=== PATIENT | male | born 1975 | race Caucasian/White ===

== ENCOUNTER 2016-11-09 14:09 | Emergency (ER) | payer MEDICAID ==
[2016-11-09] MEDS ORDERED: Doxycycline 100 MG in Sodium Chloride 0.9% 100 ML IV ONE (14:54)
[2016-11-09] MEDS ORDERED: Sodium Chloride 0.9% 1,000 ML IV SCH (15:00)
--- NOTE | 2016-11-09 16:16 | EDM.PDOC ---
ED HPI GENERAL MEDICAL PROBLEM - General Chief Complaint: Neuro Symptoms/Deficits Stated Complaint: LT SIDE NUMBNESS Time Seen by Provider: 11/09/16 14:30 Source of Information: Reports: Patient History Limitations: Reports: No Limitations - History of Present Illness INITIAL COMMENTS - FREE TEXT/NARRATIVE: pt arrived with a patchy rash on his rt arm and on his back. The rash on the rt arm looks very much target like. He now has a facial paralysis that started today. Onset: Today, Other ( the facial paralysis/ ) Duration: Hour(s): Location: Reports: Face, Generalized Associated Symptoms: Reports: No Other Symptoms - Related Data Allergies Allergy/AdvReac Type Severity Reaction Status Date / Time No Known Allergies Allergy Verified 02/27/16 07:38 Home Meds: Home Meds NK [No Known Home Meds] 11/09/16 [History] Past Medical History Musculoskeletal History: Reports: Neck Pain, Chronic Social & Family History - Tobacco Use Smoking Status *Q: Never Smoker ED ROS GENERAL - Review of Systems Review Of Systems: See Below Constitutional: Reports: No Symptoms HEENT: Reports: Other ( facial paralysis) Respiratory: Reports: No Symptoms Cardiovascular: Reports: No Symptoms Endocrine: Reports: No Symptoms GI/Abdominal: Reports: No Symptoms : Reports: No Symptoms Musculoskeletal: Reports: Muscle Pain, Muscle Stiffness Skin: Reports: Rash, Other ( area on rt arm looks like a target lesion) Neurological: Reports: Other ( facial paralysis. ) Psychiatric: Reports: No Symptoms ED EXAM, NEURO - Physical Exam Exam: See Below Text/Narrative:: pt is having tearing from the left eye and he is having difficulty closing the rt lid. He has a generalized rash which looks like the rash from [place]. It would appear at this time that he has developed a bells palsy. Exam Limited By: No Limitations General Appearance: Alert, Mild Distress, Other ( pt has equal pupils. He is having difficulty closing his left eye. ) Ears: Normal TMs Nose: Normal Inspection Throat/Mouth: Normal Inspection Head Exam: Atraumatic Neck: Normal Inspection Respiratory/Chest: No Respiratory Distress Cardiovascular: Regular Rate, Rhythm GI/Abdominal: Soft, Non-Tender (Male) Exam: Normal Inspection Rectal (Males) Exam: Deferred Neurological: Alert, Other (pt has a facial apralysis which I believe is a bells palsy. ) Back Exam: Normal Inspection Extremities: Normal Inspection Psychiatric: Anxious Skin Exam: Other (pt has a definite target lesion on the rt arm. He also has a lrge rash on his back/ ) Course - Vital Signs Last Recorded V/S: Last Vital Signs Temp 36.4 C 11/09/16 14:29 Pulse 81 11/09/16 15:36 Resp 20 11/09/16 15:36 BP 132/70 11/09/16 15:36 Pulse Ox 96 11/09/16 15:36 - Orders/Labs/Meds Orders: Active Orders 24 hr Category Date Time Status EKG Documentation Completion [RC] ASDIRECTED Care 11/09/16 15:01 Active Head wo Cont [CT] Stat Exams 11/09/16 14:52 Taken BABESIA MICROTI IGG AND IGM [REF] Stat Lab 11/09/16 14:59 Received EHRLICHIA CHAFFEENSIS, IGG&IGM [REF] Stat Lab 11/09/16 14:59 Received LYME AB SCREEN RFLX [REF] Stat Lab 11/09/16 14:59 Received Sodium Chloride 0.9% [Normal Saline] 1,000 ml Med 11/09/16 15:00 Active IV ASDIRECTED EKG 12 Lead [EK] Routine Ther 11/09/16 15:01 Ordered Medication Orders Sodium Chloride (Normal Saline) 1,000 mls @ 999 mls/hr IV ASDIRECTED FLAKO Last Admin: 11/09/16 15:51 Dose: 999 mls/hr Labs: Laboratory Tests 11/09/16 11/09/16 11/09/16 Range/Units 14:43 14:59 14:59 WBC 10.3 (4.5-11.0) K/uL RBC 5.02 (4.30-5.90) M/uL Hgb 14.7 (12.0-15.0) g/dL Hct 42.3 (40.0-54.0) % MCV 84 (80-98) fL MCH 29 (27-31) pg MCHC 35 (32-36) % Plt Count 313 (150-400) K/uL Neut % (Auto) 67 H (36-66) % Lymph % (Auto) 20 L (24-44) % Kern % (Auto) 10 H (2-6) % Eos % (Auto) 2 (2-4) % Baso % (Auto) 2 H (0-1) % Sodium 138 L (140-148) mmol/L Potassium 3.9 (3.6-5.2) mmol/L Chloride 103 (100-108) mmol/L Carbon Dioxide 21 (21-32) mmol/L Anion Gap 17.9 H (5.0-14.0) mmol/L BUN 20 H (7-18) mg/dL Creatinine 0.9 (0.8-1.3) mg/dL Est Cr Clr Drug Dosing 104.50 mL/min Estimated GFR (MDRD) > 60 (>60) Glucose 113 H (74-106) mg/dL Calcium 8.5 (8.5-10.1) mg/dL Total Bilirubin 0.2 (0.2-1.0) mg/dL AST 14 L (15-37) U/L ALT 19 (12-78) U/L Alkaline Phosphatase 82 (46-116) U/L C-Reactive Protein 0.69 H (0.0-0.3) mg/dL Total Protein 7.2 (6.4-8.2) g/dL Albumin 3.5 (3.4-5.0) g/dL Globulin 3.7 H (2.3-3.5) g/dL Albumin/Globulin Ratio 1.0 L (1.2-2.2) Urine Color Urine Appearance Urine pH (4.5-8.0) Ur Specific Waller (1.008-1.030) Urine Protein (NEGATIVE) mg/dL Urine Glucose (UA) (NEGATIVE) mg/dL Urine Ketones (NEGATIVE) mg/dL Urine Occult Blood (NEGATIVE) Urine Nitrite (NEGAITVE) Urine Bilirubin (NEGATIVE) Urine Urobilinogen (NORMAL) mg/dL Ur Leukocyte Esterase (NEGATIVE) Urine RBC (0-5) Urine WBC (0-5) Ur Epithelial Cells Amorphous Sediment Urine Bacteria Urine Mucus 11/09/16 Range/Units 17:05 WBC (4.5-11.0) K/uL RBC (4.30-5.90) M/uL Hgb (12.0-15.0) g/dL Hct (40.0-54.0) % MCV (80-98) fL MCH (27-31) pg MCHC (32-36) % Plt Count (150-400) K/uL Neut % (Auto) (36-66) % Lymph % (Auto) (24-44) % Kern % (Auto) (2-6) % Eos % (Auto) (2-4) % Baso % (Auto) (0-1) % Sodium (140-148) mmol/L Potassium (3.6-5.2) mmol/L Chloride (100-108) mmol/L Carbon Dioxide (21-32) mmol/L Anion Gap (5.0-14.0) mmol/L BUN (7-18) mg/dL Creatinine (0.8-1.3) mg/dL Est Cr Clr Drug Dosing mL/min Estimated GFR (MDRD) (>60) Glucose (74-106) mg/dL Calcium (8.5-10.1) mg/dL Total Bilirubin (0.2-1.0) mg/dL AST (15-37) U/L ALT (12-78) U/L Alkaline Phosphatase (46-116) U/L C-Reactive Protein (0.0-0.3) mg/dL Total Protein (6.4-8.2) g/dL Albumin (3.4-5.0) g/dL Globulin (2.3-3.5) g/dL Albumin/Globulin Ratio (1.2-2.2) Urine Color Yellow Urine Appearance Clear Urine pH 5.0 (4.5-8.0) Ur Specific Waller 1.015 (1.008-1.030) Urine Protein Negative (NEGATIVE) mg/dL Urine Glucose (UA) Normal (NEGATIVE) mg/dL Urine Ketones Negative (NEGATIVE) mg/dL Urine Occult Blood Negative (NEGATIVE) Urine Nitrite Negative (NEGAITVE) Urine Bilirubin Negative (NEGATIVE) Urine Urobilinogen Normal (NORMAL) mg/dL Ur Leukocyte Esterase Negative (NEGATIVE) Urine RBC Not seen (0-5) Urine WBC Not seen (0-5) Ur Epithelial Cells Rare Amorphous Sediment Not seen Urine Bacteria Rare Urine Mucus Not seen Meds: Medications Generic Name Dose Route Start Last Admin Trade Name Freq PRN Reason Stop Dose Admin Sodium Chloride 1,000 mls @ 999 mls/hr 11/09/16 15:00 11/09/16 15:51 Normal Saline IV 999 mls/hr ASDIRECTED FLAKO Administration Discontinued Medications Generic Name Dose Route Start Last Admin Trade Name Freq PRN Reason Stop Dose Admin Doxycycline Hyclate 100 mg/ 100 mls @ 100 mls/hr 11/09/16 14:54 11/09/16 15: 51 Sodium Chloride IV 11/09/16 15:53 100 mls/hr ONETIME ONE Administration Methylprednisolone Sodium Succinate 125 mg 11/09/16 16:34 11/09/16 17:16 Solu-Medrol IVPUSH 11/09/16 16:35 125 mg ONETIME ONE Administration - Re-Assessments/Exams Free Text/Narrative Re-Assessment/Exam: 11/09/16 17:06 pt has a normal wbc. His chem look good. His sgot is not elevated, tick studies were obtained. Pt was given 100mg of doxycyline iv and he will return tonight for a second dose. Departure - Departure Time of Disposition: 17:30 Disposition: Home, Self-Care 01 Condition: Fair Clinical Impression: Acute Lyme disease, Price's palsy - Discharge Information Forms: ED Department Discharge Care Plan Goals: keep Thursday appt with Dr De La O, rtc tonight for a 2nd dose of iv doxycyline 100mg, rtc if symptoms should get worse, predisone 40mg daily for 3 days then 30mg daily for 2 days then 20mg daily for 2 days, 10mg daily for 2 days. doxycyline 100mg bid. - My Orders Last 24 Hours: My Active Orders 11/09/16 14:52 Head wo Cont [CT] Stat 11/09/16 14:59 BABESIA MICROTI IGG AND IGM [REF] Stat EHRLICHIA CHAFFEENSIS, IGG&IGM [REF] Stat LYME AB SCREEN RFLX [REF] Stat 11/09/16 15:00 Sodium Chloride 0.9% [Normal Saline] 1,000 ml IV ASDIRECTED 11/09/16 15:01 EKG Documentation Completion [RC] ASDIRECTED EKG 12 Lead [EK] Routine - Assessment/Plan Last 24 Hours: My Active Orders 11/09/16 14:52 Head wo Cont [CT] Stat 11/09/16 14:59 BABESIA MICROTI IGG AND IGM [REF] Stat EHRLICHIA CHAFFEENSIS, IGG&IGM [REF] Stat LYME AB SCREEN RFLX [REF] Stat 11/09/16 15:00 Sodium Chloride 0.9% [Normal Saline] 1,000 ml IV ASDIRECTED 11/09/16 15:01 EKG Documentation Completion [RC] ASDIRECTED EKG 12 Lead [EK] Routine
[2016-11-09] MEDS: methylPREDNISolone Sodium Succinate 125 MG/2 ML SDV IVPUSH ONE (17:16)
[2016-11-09 17:40] VITALS: BP 150/82
== END 2016-11-09 17:59 | disposition home or self-care (01) ==
LOC: JP.ED 14:09
DX: A69.20 Lyme disease, unspecified (principal); G51.0 Bell's palsy
CPT/HCPCS: 36415; 70450; 80053; 81001; 85025; 86140; 86618; 86666; 86753; 93005; 96365; 96375; 99284; J2930; J7030; J7040

== ENCOUNTER 2021-09-03 06:43 | Day surgery (SDC) | payer MEDICAID ==
[~2021-09-03 06:43] MED LIST: Bupivacaine 0.5%/EPINEPHrine 1:200,000 50 ML MDV ONE; Meropenem 500 MG SDV ONE
[2021-09-03] MEDS ORDERED: Lidocaine 1% 50 ML MDV ONE (06:58)
[2021-09-03] MEDS ORDERED: Acetaminophen 500 MG Tab PO ONE (07:00)
[2021-09-03] MEDS ORDERED: Dextrose 5%-Lactated Ringers 1,000 ML IV SCH (07:00)
[2021-09-03] MEDS ORDERED: fentaNYL 250 MCG/5 ML SDV ONE (07:03)
[2021-09-03] MEDS ORDERED: Glycopyrrolate 0.2 MG/ML 5 ML MDV ONE (07:04)
[2021-09-03] MEDS ORDERED: Propofol 200 MG/20 ML SDV ONE ×2 (07:04→08:47)
[2021-09-03] MEDS ORDERED: Ondansetron 4 MG/2 ML SDV ONE (07:04)
[2021-09-03] MEDS ORDERED: Succinylcholine 200 MG/10 ML MDV ONE (07:04)
[2021-09-03] MEDS ORDERED: Neostigmine Methylsulfate 1 MG/ML 5 ML Syringe ONE (07:04)
[2021-09-03] MEDS ORDERED: Rocuronium 50 MG/5 ML Vial ONE (07:04)
[2021-09-03] MEDS ORDERED: Dexamethasone 4 MG/ML SDV ONE (07:04)
[2021-09-03] MEDS ORDERED: Lidocaine 1% with EPINEPHrine 1:100,000 50 ML MDV ONE (07:06)
[2021-09-03] MEDS ORDERED: Bupivacaine 0.5% 50 ML MDV ONE (07:06)
[2021-09-03] MEDS ORDERED: MEROPENEM 500 MG ONE ×2 (07:30)
[2021-09-03] MEDS ORDERED: SODIUM CHLORIDE 0.9% ONE ×2 (07:30)
[2021-09-03] MEDS ORDERED: Meropenem 500 MG in Sodium Chloride 0.9% 50 ML IV ONE (07:30)
[2021-09-03] MEDS ORDERED: fentaNYL 100 MCG/2 ML SDV ONE (08:13)
[2021-09-03] MEDS ORDERED: Ketorolac 30 MG/ML SDV ONE (08:52)
[2021-09-03] MEDS ORDERED: Naloxone 0.4 MG/ML SDV ONE (09:08)
[2021-09-03] MEDS ORDERED: Lactated Ringers 1,000 ML ONE (09:10)
[2021-09-03] MEDS ORDERED: Magnesium Hydroxide 400 MG/5 ML Susp 30 ML Cup PO PRN (10:09)
[2021-09-03] MEDS ORDERED: Doxycycline 100 MG Cap PO ONE (10:15)
[2021-09-03 10:55] VITALS: BP 120/77; PULSE 92
== END 2021-09-03 11:30 | disposition home or self-care (01) ==
LOC: JP.SDS 06:43
PROVIDERS: ATTEND Surgery
DX: K62.3 Rectal prolapse (principal); K64.8 Other hemorrhoids; F41.1 Generalized anxiety disorder; R05.9 Cough, unspecified; Z79.899 Other long term (current) drug therapy; Z87.891 Personal history of nicotine dependence; Z20.822 Contact with and (suspected) exposure to COVID-19
CPT/HCPCS: 36415; 80053; 85027; A9270-GY; J0330; J1100; J1885; J2001; J2020; J2185; J2310; J2405; J2704; J2710; J3010; J3490; J7120; J7121

== ENCOUNTER 2022-01-17 19:13 | Emergency (ER) | payer MEDICAID ==
[2022-01-17 19:29] VITALS: BP 143/90; PULSE 66
== END 2022-01-17 20:12 | disposition home or self-care (01) ==
LOC: JP.ED 19:13
DX: H92.21 Otorrhagia, right ear (principal); H61.21 Impacted cerumen, right ear
CPT/HCPCS: 99282; 99283

== ENCOUNTER 2022-08-05 07:56 | Day surgery (SDC) | payer MEDICAID ==
[~2022-08-05 07:56] MED LIST changes: -Bupivacaine 0.5%/EPINEPHrine 1:200,000 50 ML MDV ONE; +Lactated Ringers 1,000 ML IV SCH; -Meropenem 500 MG SDV ONE
[2022-08-05] MEDS ORDERED: Lactated Ringers 1,000 ML IV SCH (08:30)
[2022-08-05] MEDS ORDERED: Propofol 200 MG/20 ML SDV ONE (09:03)
[2022-08-05] MEDS ORDERED: Midazolam 1 MG/ML 2 ML SDV ONE (09:04)
[2022-08-05] MEDS ORDERED: fentaNYL 100 MCG/2 ML SDV ONE (09:04)
[2022-08-05 11:20] VITALS: BP 123/74; PULSE 58
== END 2022-08-05 11:22 | disposition home or self-care (01) ==
LOC: JP.SDS 07:56
PROVIDERS: ATTEND Family Medicine
DX: K21.00 Gastro-esophageal reflux disease with esophagitis, without bleeding (principal); K44.9 Diaphragmatic hernia without obstruction or gangrene; K29.70 Gastritis, unspecified, without bleeding; K29.80 Duodenitis without bleeding; J45.909 Unspecified asthma, uncomplicated; F90.9 Attention-deficit hyperactivity disorder, unspecified type
CPT/HCPCS: 43239; J2250; J2704; J3010; J7120

== ENCOUNTER 2022-09-17 15:57 | Emergency (ER) | payer MEDICAID ==
[2022-09-17 18:00] VITALS: BP 129/74; PULSE 67
== END 2022-09-17 17:55 | disposition home or self-care (01) ==
LOC: JP.ED 15:57
DX: H61.22 Impacted cerumen, left ear (principal); H90.2 Conductive hearing loss, unspecified; K21.9 Gastro-esophageal reflux disease without esophagitis; Z87.891 Personal history of nicotine dependence; Z79.899 Other long term (current) drug therapy
CPT/HCPCS: 99282